=== PATIENT | female | born 1945 | race Caucasian/White ===

== ENCOUNTER 2020-03-07 08:23 | Day surgery (SDC) | payer MEDICARE ==
--- NOTE | 2020-03-07 08:11 | HP ---
DATE OF SURGERY: 03/07/2020 HISTORY OF PRESENT ILLNESS: The patient is a 74 year old for a while has had some difficulty swallowing, chokes mostly on solids sometimes steak and rice upper esophagus worse recently. Coughing with some mucous. PAST MEDICAL HISTORY: Takes some heartburn medication currently. Hypertension, reflux. Negative Cologuard in the past. PAST SURGICAL HISTORY: Appendectomy, hysterectomy, MEDICATIONS: Lisinopril, hydrochlorothiazide, omeprazole, pantoprazole, aspirin, vitamins and minerals. ALLERGIES: NKDA. FAMILY HISTORY: Mother with breast cancer. CVA in the past in the family. SOCIAL HISTORY: Denies smoking. REVIEW OF SYSTEMS: Fourteen systems reviewed. No chest pain or palpitations. Other systems negative or noncontributory as above and per preadmission questionnaire. PHYSICAL EXAMINATION: GENERAL: No acute distress. HEENT: Sclerae nonicteric. NECK: No JVD. CHEST: Equal excursion, nonlabored breathing. CVS: Regular rate and rhythm. ABDOMEN: Soft, nontender. EXTREMITIES: No edema. NEURO: Alert, oriented, moving extremities symmetrically. No gross motor deficits noted. PSYCH: Appropriate mood and affect. IMPRESSION: Dysphagia upper esophagus. The patient is in need of follow up upper endoscopy possible biopsy, possible dilatation. Shown the risk sheet, explained the procedure in detail including but not limited to bleeding or infection, risk of bowel injury or perforation possibly requiring open procedure, risk of missed or nondiagnosis or incomplete exam possibly requiring barium swallow, other studies, procedures or referral. General risk of anesthesia or sedation, remote risk of perforation possibly requiring major procedure. He understands possibility if dilatation improves may need it again down the road. There is a possibility this could be more of a neurological or functional issue and dilatation may not improve her swallowing. She understands and agrees to the planned procedure and will proceed with outpatient EGD with possible biopsy possible dilatation as an outpatient.
[2020-03-07] MEDS ORDERED: Lactated Ringers 1,000 ML IV SCH (08:30)
[2020-03-07] MEDS ORDERED: Lactated Ringers 1,000 ML IV ONE (08:31)
[2020-03-07 08:46] VITALS: O2SAT 98
[2020-03-07] MEDS ORDERED: DIPRIVAN 200 MG/20 ML IV ONE ×2 (10:38→10:48)
[2020-03-07] MEDS ORDERED: Xylocaine-Mpf 2% 5 Ml Vial ONE ×2 (10:38)
[2020-03-07] MEDS ORDERED: Ketamine HCl 50 MG/ML ONE (10:39)
[2020-03-07 12:02] VITALS: BP 134/74; PULSE 56
--- NOTE | 2020-03-07 14:17 | OP ---
SURGERY DATE/TIME: 03/07/2020 1039 PREOPERATIVE DIAGNOSIS: Dysphagia. POSTOPERATIVE DIAGNOSES: 1) Gastritis. 2) Short segment of gastroesophagitis, short segment distal esophagitis. 3) Symptomatic proximal esophageal narrowing and spasm requiring dilatation. PROCEDURES: 1) EGD with cold biopsy of antrum for Helicobacter pylori. 2) Cold biopsy distal esophagus. 3) Cold biopsy removal of 1.5 mm small mid esophagus hyperplastic lesion or nodule. 4) Proximal esophageal balloon dilatation (size 20 balloon dilator). SURGEON: Dr. Fidel Acevedo. ANESTHESIA: MAC. ESTIMATED BLOOD LOSS: Minimal. INDICATIONS: As noted above. Risks and benefits explained in detail and not limited to and consent obtained. DESCRIPTION OF PROCEDURE AND FINDINGS: The patient is taken to the endoscopy room. MAC anesthesia introduced. After official time out and no disagreement with planned procedure, a bite block positioned. Video gastroscope passed down the oropharynx. The proximal esophageal area where she is having symptoms had a narrowed area there was no obvious mass or lesion to biopsy. Given the narrowing and her symptoms it was felt this warranted dilatation. Scope was able to be passed through here to the patent pylorus, junction of the second and third portion of the duodenum. Proximal duodenum grossly unremarkable. Scope pulled back in the stomach. There was some evidence of some gastritis in the antrum. Nothing deep enough to call an ulcer but definitely some gastritis. Cold biopsy taken for Helicobacter pylori. There is no obvious masses, polyps or other mucosal lesions in the stomach. On retroflex the gastroesophageal junction was fairly snug against the scope. There was just a trace weakness but no signs of any large hiatal hernia. Scope straightened. Gastroesophageal 35 cm. There was some distal esophagitis very short segment. Cold biopsy taken for further evaluation. Good hemostasis noted. Otherwise the scope carefully withdrawn at the esophagus. Small 1.5 mm or so little raised lesion or hyperplastic lesion removed with cold biopsy forceps. Good hemostasis noted. Scope pulled back up to the narrowed area proximal esophagus again. There is no evidence of any mass or lesion to biopsy. It is felt it warranted dilatation given her symptoms in this area. Scope passed back down in the stomach. A 20 balloon catheter carefully inserted under direct vision in the stomach and then pulled up to the proximal esophageal narrowing. It was then carefully inflated to first stage for 30 to 45 seconds size 18, second stage for 35 to 45 seconds, final stage inflated for 2 minutes. The balloon catheter is then carefully decompressed and withdrawn. The scope much more easily passed through here and back into the stomach and carefully withdrawn. Good hemostasis noted. There were no signs of any full thickness issues or injury secondary to dilatation. Scope withdrawn. The patient tolerated the procedure well. There was no family available to discuss the findings with. I will see her back in the office to go over the results.
== END 2020-03-07 12:03 | disposition home or self-care (01) ==
LOC: SDC 08:23
PROVIDERS: ATTEND Surgery
DX: K22.2 Esophageal obstruction (principal); K29.70 Gastritis, unspecified, without bleeding; K22.9 Disease of esophagus, unspecified; K22.4 Dyskinesia of esophagus; I10 Essential (primary) hypertension; Z79.899 Other long term (current) drug therapy
CPT/HCPCS: 99100; C1726; J2704